=== PATIENT | female | born 1965 | race Caucasian/White ===

== ENCOUNTER 2023-04-21 23:37 | Inpatient (IN) | payer MEDICAID ==
[~2023-04-21] VITALS: Ht 167.6 cm; Wt 44.9 kg
[2023-04-22] MEDS ORDERED: MORPHINE SULFATE 10 MG/ML CPJ IM ONE (00:30)
[2023-04-22] MEDS ORDERED: NAPR-1176 MT (02:49)
[2023-04-22] MEDS ORDERED: CYCL5TAB MT (02:49)
[2023-04-22] MEDS ORDERED: LIDO700A15 TP (02:49)
[2023-04-22 06:29] LABS: ALANINE AMINOTRANSFERASE 14 IU/L (10-49); ALBUMIN 3.6 g/dL (3.2-4.8); ASPARTATE AMINOTRANSFERASE 18 IU/L (<34); BILIRUBIN TOTAL 0.8 mg/dL (0.1-1.0); CALCIUM 8.8 mg/dL (8.7-10.4); CARBON DIOXIDE 25 mEq/L (21-32); CHLORIDE 106 mEq/L (98-107); CREATININE 0.6 mg/dL (0.6-1.0); GLUCOSE 216 mg/dL (70-105); POTASSIUM 3.5 mEq/L (3.5-5.1); PROTEIN TOTAL 6.3 g/dL (6.0-8.3); SODIUM 138 mEq/L (136-145); UREA NITROGEN BLOOD 6 mg/dL (9-23)
[2023-04-22 06:40] LABS: BASOPHILS % 0.3 % (0.0-2.0); HEMATOCRIT. 37.4 % (36.0-48.0); HEMOGLOBIN. 12.7 g/dL (12.0-16.0); MEAN CORPUSCULAR HEMOGLOBIN 30.3 pg (28.0-32.0); MEAN CORPUSCULAR VOLUME 89.1 fL (81.0-99.0); NEUTROPHILS % 52.7 % (40.0-76.0); PLATELET 263 x1000/uL (130-400); RED CELL DISTRIBUTION WIDTH 13.5 % (11.6-14.6); WHITE BLOOD COUNT 6.6 x1000/uL (4.5-11.0)
[2023-04-22] MEDS ORDERED: MORPHINE SULFATE 4 MG/ML CPJ (NOT FOR IM USE) IV NR (09:15)
[2023-04-22 10:02] LABS: CLARITY URINE CLOUDY (CLEAR); COLOR URINE YELLOW (YELLOW); SPECIFIC GRAVITY URINE 1.015 (1.005-1.030)
[2023-04-22 10:03] LABS: GLUCOSE URINE 1+ (NEGATIVE); KETONES URINE NEGATIVE (NEGATIVE); LEUKOCYTE ESTERASE URINE 2+ (NEGATIVE); NITRITE URINE POSITIVE (NEGATIVE); OCCULT BLOOD URINE NEGATIVE (NEGATIVE); PROTEIN URINE NEGATIVE (NEGATIVE); UROBILINOGEN URINE 0.2 E.U./dL (0.2-1.0)
[2023-04-22 10:06] LABS: BACTERIA URINE 3+; RBC URINE 0-2 /hpf (0-2); SQUAMOUS EPITHELIAL CELL URINE 1+ /lpf (RARE/1+); YEAST URINE NONE SEEN
[2023-04-22 18:45] VITALS: BP 136/72; PULSE 83; RESP 16; TEMP 97.9
[2023-04-22 20:00] VITALS: BP 99/65; PULSE 65; RESP 20; TEMP 97.5
[2023-04-22] MEDS ORDERED: ONDANSETRON HCL 4MG/2ML INJ IV PRN (21:15)
[2023-04-22] MEDS ORDERED: NALOXONE HCL 0.4MG/ML VIAL IV PRN (22:15)
[2023-04-22] MEDS ORDERED: DEXTROSE 50% WATER 50ML SYRINGE IV PRN (23:00)
[2023-04-23] VITALS: BP 117/67; PULSE 59; RESP 20; TEMP 97.9
[2023-04-23 01:47] LABS: CREATINE KINASE 44 IU/L (34-145); CREATINE KINASE MB FRACTION < 0.5 ng/mL (0.5-3.6)
[2023-04-23 01:49] LABS: TROPONIN I HIGH SENSITIVITY < 4 ng/L (3.0-34)
[2023-04-23 04:00] VITALS: BP 133/71; PULSE 53; RESP 20; TEMP 98.7
[2023-04-23] MEDS: BLOOD SUGAR DIAGNOSTIC STRIP TEST SCH ×4 (07:20→21:00)
[2023-04-23] MEDS: INSULIN LISPRO 100 UNITS/ML SUBCUT SCH ×4 (07:50→23:37)
[2023-04-23 08:00] VITALS: BP 112/73; PULSE 64; RESP 18; TEMP 97.7
[2023-04-23] MEDS ORDERED: CEFTRIAXONE 1GM PREMIX 50 ML IV SCH (09:15)
[2023-04-23 09:45] LABS: BASOPHILS % 0.3 % (0.0-2.0); EOSINOPHILS % 1.3 % (0.0-5.0); HEMATOCRIT. 41.9 % (36.0-48.0); HEMOGLOBIN. 14.3 g/dL (12.0-16.0); LYMPHOCYTES % 30.5 % (20.0-50.0); MEAN CORPUSCULAR HEMOGLOBIN 30.8 pg (28.0-32.0); MEAN CORPUSCULAR HGB CONC 34.1 g/dL (31.0-37.0); MEAN CORPUSCULAR VOLUME 90.4 fL (81.0-99.0); MEAN PLATELET VOLUME 7.7 fl (7.4-10.4); MONOCYTES % 5.5 % (2.0-8.0); NEUTROPHILS % 62.4 % (40.0-76.0); PLATELET 288 x1000/uL (130-400); RED BLOOD CELL COUNT 4.63 mill/uL (4.2-5.4); RED CELL DISTRIBUTION WIDTH 13.2 % (11.6-14.6)
[2023-04-23 10:45] LABS: CALCIUM 9.3 mg/dL (8.7-10.4); CARBON DIOXIDE 27 mEq/L (21-32); CHLORIDE 107 mEq/L (98-107); CHOLESTEROL 233 mg/dL (<200); CREATININE 0.7 mg/dL (0.6-1.0); GLUCOSE 236 mg/dL (70-105); HDL CHOLESTEROL 51 mg/dL (>65); LDL CHOLESTEROL 172 mg/dL (5-100); POTASSIUM 3.7 mEq/L (3.5-5.1); SODIUM 141 mEq/L (136-145); THYROID STIMULATING HORMONE 0.45 uIU/mL (0.55-4.78); TRIGLYCERIDE 171 mg/dL (0-150); UREA NITROGEN BLOOD 6 mg/dL (9-23)
[2023-04-23] MEDS: CEFTRIAXONE 1,000 MG in DEXTROSE 5% WATER 50 ML IV SCH (11:10)
[2023-04-23] MEDS: HYDROCODONE/ACETAMINOPHEN 5/325MG TABLET PO PRN ×2 (11:38→19:14)
[2023-04-23 12:00] VITALS: BP 111/79; PULSE 73; RESP 18; TEMP 97.9
[2023-04-23 14:18] LABS: CREATINE KINASE 43 IU/L (34-145); CREATINE KINASE MB FRACTION < 0.5 ng/mL (0.5-3.6)
[2023-04-23 14:19] LABS: TROPONIN I HIGH SENSITIVITY < 4 ng/L (3.0-34)
[2023-04-23 16:00] VITALS: BP 112/70; PULSE 64; RESP 18; TEMP 97.7
[2023-04-23 20:00] VITALS: BP 102/63; PULSE 80; RESP 19; TEMP 97.9
[2023-04-24] VITALS: BP 116/71; PULSE 66; RESP 20; TEMP 97.9
[2023-04-24 04:00] VITALS: BP 131/4; PULSE 63; RESP 20; TEMP 98.2
[2023-04-24] MEDS: HYDROCODONE/ACETAMINOPHEN 5/325MG TABLET PO PRN ×3 (07:07→18:23)
[2023-04-24] MEDS: BLOOD SUGAR DIAGNOSTIC STRIP TEST SCH ×4 (07:09→20:47)
[2023-04-24] MEDS: INSULIN LISPRO 100 UNITS/ML SUBCUT SCH ×4 (07:50→20:52)
[2023-04-24 08:00] VITALS: BP 142/80; PULSE 82; RESP 21; TEMP 98.4
[2023-04-24] MEDS: CEFTRIAXONE 1,000 MG in DEXTROSE 5% WATER 50 ML IV SCH (11:00)
[2023-04-24 20:00] VITALS: BP 98/67; PULSE 77; RESP 16; TEMP 97.9
[2023-04-25] VITALS: BP 99/64; PULSE 74; RESP 20; TEMP 97.7
[2023-04-25 04:00] VITALS: BP 118/71; PULSE 60; RESP 18; TEMP 97.1
[2023-04-25] MEDS: BLOOD SUGAR DIAGNOSTIC STRIP TEST SCH ×2 (07:29→13:03)
[2023-04-25 08:00] VITALS: BP 102/67; PULSE 62; RESP 19; TEMP 96.7
[2023-04-25] MEDS: INSULIN LISPRO 100 UNITS/ML SUBCUT SCH ×2 (08:39→13:12)
[2023-04-25] MEDS: CEFTRIAXONE 1,000 MG in DEXTROSE 5% WATER 50 ML IV SCH (10:06)
[2023-04-25 12:00] VITALS: BP 131/82; PULSE 64; RESP 20; TEMP 96.7
[2023-04-25] MEDS ORDERED: HYDR-4001 MT (12:33)
[2023-04-25] MEDS ORDERED: ATOR20TA MT (12:33)
[2023-04-25 13:17] VITALS: BP 131/82; PULSE 64; TEMP 96.7; O2SAT 95
== END 2023-04-25 16:05 | disposition home health service (06) | DRG 347 ==
LOC: ER 23:37 → 6EST 04-22 03:41
PROVIDERS: ADMIT Internal Medicine; ATTEND Internal Medicine
DX: M51.36 Other intervertebral disc degeneration, lumbar region (principal); E11.9 Type 2 diabetes mellitus without complications; E78.5 Hyperlipidemia, unspecified; G89.29 Other chronic pain; M54.42 Lumbago with sciatica, left side; M47.816 Spondylosis without myelopathy or radiculopathy, lumbar region; M43.16 Spondylolisthesis, lumbar region; M51.27 Other intervertebral disc displacement, lumbosacral region; Z79.4 Long term (current) use of insulin; Z79.84 Long term (current) use of oral hypoglycemic drugs; W01.198A Fall on same level from slipping, tripping and stumbling with subsequent striking against other object, initial encounter; Y93.89 Activity, other specified; Y92.89 Other specified places as the place of occurrence of the external cause; Y99.8 Other external cause status
CPT/HCPCS: 36415; 72131; 72148; 72192; 80048; 80053; 80061; 81003; 82550; 82553; 82962; 83036; 83735; 84443; 84484; 85025; 97162; 97166; 99285; J0696; J1815; J2270; J7060